=== PATIENT | female | born 1995 | race Caucasian/White ===

== ENCOUNTER 2017-11-27 21:38 | Emergency (ER) | payer MEDICAID ==
[2017-11-27 21:51] VITALS: Ht 167.6 cm
[2017-11-27 23:17] LABS: microscopic required? NO
[2017-11-27 23:25] LABS: UA SPECIFIC GRAVITY 1.025 (1.005-1.035); urine erythrocyte NEGATIVE (NEGATIVE)
[2017-11-28 03:58] VITALS: BP 115/67
== END 2017-11-28 01:30 | disposition home or self-care (01) ==
LOC: ED 21:38
PROVIDERS: Emergency Medicine
DX: M54.6 Pain in thoracic spine (principal)

== ENCOUNTER 2018-05-27 16:04 | Emergency (ER) | payer OTHER ==
[~2018-05-27] VITALS: Ht 165.1 cm; Wt 86.2 kg
[2018-05-27 16:49] VITALS: Ht 165.1 cm; Wt 86.2 kg
[2018-05-27 19:16] VITALS: BP 115/68
== END 2018-05-27 19:16 | disposition home or self-care (01) ==
LOC: ED 16:04
DX: S39.012A Strain of muscle, fascia and tendon of lower back, initial encounter (principal); V43.52XA Car driver injured in collision with other type car in traffic accident, initial encounter; Y93.I9 Activity, other involving external motion; Y92.413 State road as the place of occurrence of the external cause; Y99.8 Other external cause status
CPT/HCPCS: J1885

== ENCOUNTER 2018-06-02 23:09 | Emergency (ER) | payer OTHER ==
[~2018-06-02] VITALS: Ht 165.1 cm; Wt 81.6 kg
[2018-06-02 23:25] VITALS: Ht 165.1 cm; Wt 81.6 kg
[2018-06-02 23:57] VITALS: BP 128/62
== END 2018-06-02 23:57 | disposition home or self-care (01) ==
LOC: ED 23:09
DX: S16.1XXA Strain of muscle, fascia and tendon at neck level, initial encounter (principal); S80.212A Abrasion, left knee, initial encounter; Y09 Assault by unspecified means; Y93.89 Activity, other specified; Y92.89 Other specified places as the place of occurrence of the external cause; Y99.8 Other external cause status
CPT/HCPCS: 90715